=== PATIENT | male | born 2000 | race Caucasian/White ===

== ENCOUNTER 2024-10-24 14:27 | Emergency (ER) | payer BC, SELFPAY ==
--- NOTE | 2024-10-24 14:30 | ED_ITS ---
HPI - Skin/Abscess/Foreign Bdy General Chief complaint: Skin/Abscess/Foreign Body Stated complaint: skin irritation Time Seen by Provider: 10/24/24 14:30 Source: patient Mode of arrival: ambulatory Limitations: no limitations History of Present Illness HPI narrative: Patient is a 24-year-old male who presents with bruising to tip of penis. Patient states he was doing a squat and felt like his underwear was very tight and squeezing. Denies any testicular pain, swelling, groin pain, discharge or pain with urination. Related Data Allergies Allergy/AdvReac Type Severity Reaction Status Date / Time No Known Allergies Allergy Verified 10/24/24 15:23 Review of Systems 2 Review of Systems: All systems reviewed & are unremarkable except as noted in HPI and below Constitutional: Constitutional: Denies body ache(s), Denies chills, Denies fatigue, Denies fever(s), Denies headache(s), Denies malaise and Denies weakness Eyes: Eyes: Denies blurry vision, Denies irritation and Denies loss of vision ENT: Denies otalgia, Denies headache(s), Denies nasal discharge, Denies sinus pain and Denies sore throat Cardiovascular: Cardiovascular: Denies chest pain, Denies irregular heart rhythm and Denies dyspnea Respiratory: Respiratory: Denies dyspnea Gastrointestinal: Gastrointestinal: Denies abdominal pain, Denies melena, Denies hematochezia, Denies diarrhea, Denies nausea and Denies vomiting Genitourinary: Genitourinary: Reports other (Penile bruising) Musculoskeletal: Musculoskeletal: Denies back pain, Denies myalgias and Denies arthralgias Integumentary/Breasts: Skin/Breast: Denies pruritus and Denies rash Neurologic: Denies headache(s), Denies loss of vision and Denies weakness Psychiatric: Psychiatric: Reports no additional psychiatric complaints Endocrine: Endocrine: Denies fatigue PMFSH Comments At time of signature, agree with nursing past medical, surgical, social and family history. There is no relevant family history pertinent to the presenting complaint. Exam 2 Const: General: cooperative, healthy appearing, comfortable, no acute distress and well nourished Nutritional Appearance: well nourished O rientation/consciousness: patient oriented x3 Limitations: no limitations HENMT: Head: normal to inspection, normocephalic and atraumatic Ears: h earing grossly normal bilaterally and external ears normal Face/Nose/Sinus: N ormal external nose present, normal facial exam and face symmetric Face and sinus: normal facial exam and face symmetric Mouth: Yes lip normal Eyes: General: appearance normal, both eyes and all related structures A lignment and Position: alignment normal and position normal Periorbital: p eriorbital findings normal Eyelids: eyelids normal Pupils: Equal, round and reactive pupils present EOM: EOMs intact bilaterally Neck: Neck: normal visual inspection, full ROM and supple Chest: Chest palpation & inspection: normal inspection of the chest Resp: Effort & Inspection: normal respiratory effort and able to speak in complete sentences Auscultation: clear to auscultation bilaterally Cardio: Rate: regular rate Rhythm: regular rhythm Heart sounds: S1 normal heart sound present and S2 normal heart sound present GI: Inspection: normal to inspection : Penis: Yes normal penis, Yes circumcised, Yes ecchymosis, No erythematous, No vesicles and No Localized penile swelling present Meatus: No Blood at meatus present Scrotum: scrotum normal Testes: Testes normal, testicular lie normal and epididymides normal Male genitals images: 1. circular pattern of small purple discolorations appearing to be burst blood vessels. there is not open wounds or swelling. Skin: General skin exam: normal color and no rashes or lesions noted Neuro: General: patient oriented x3 and moves all extremities Cranial nerves: Yes Equal, round and reactive pupils present Speech: normal speech Gait exam (Neuro): Normal gait present Extrem: General: normal to inspection, full ROM and no edema Psych: Appearance: grossly normal and well kempt Mental Status: mental status grossly normal Speech and movement: Normal speech and movement present Affect: normal affect Attitude: cooperative Thought process: Normal thought process present Course Course Emergency Course: Patient is aware of diagnosis, understands and agrees to treatment plan. Anticipatory guidance given. Patient agrees to follow-up as directed and is aware of reasons to seek care at the emergency department. Portions of this record may have been created with voice recognition software Level of Care: Express Care Visit Vital Signs Vital signs: Vital Signs Temperature 36.4 C 10/24/24 15:08 Pulse Rate 78 10/24/24 15:08 Respiratory Rate 17 10/24/24 15:08 Blood Pressure 136/103 H 10/24/24 15:08 Pulse Oximetry 97 10/24/24 15:08 Oxygen Delivery Room Air 10/24/24 15:08 Temperature 36.4 C 10/24/24 15:08 Pulse Rate 78 10/24/24 15:08 Respiratory Rate 17 10/24/24 15:08 Blood Pressure 129/74 10/24/24 15:45 Pulse Oximetry 97 10/24/24 15:08 Oxygen Delivery Room Air 10/24/24 15:08 Reviewed MDM - Skin/Abscess/Foreign Bdy MDM Narrative Medical decision making narrative: Upon further examination, it appears that tip of penis was pinched in flap of underwear while doing a squat motion Pt well hydrated appearing, in no respiratory distress, hemodynamically stable. Recommend supportive care. The patient is stable at time of discharge the clinical impression was discussed and the patient was given the opportunity to ask questions, which were addressed as completely as possible given the information available at present. Anticipatory guidance and return to care precautions were discussed and the importance of primary care follow-up was stressed and encouraged. The patient voiced understanding of the plan, indications to return, and the need for follow-up. Exam findings show no acute concerns or changes Patient is appropriate for outpatient treatment and follow-up. Differential Diagnosis Differential diagnosis: Likely cellulitis, contact dermatitis and other (Petechia, hematoma) Discharge Plan Discharge Clinical Impression: Bruise of penis Patient Disposition: Home, Self-Care Condition: Stable Instructions: Hematoma (ED) Additional Instructions: 1) Please follow-up with your primary care doctor in the next 3-4 days if not improving. 2) If you have any worsening of symptoms or any other urgent concerns please go to the ER. 3) Please take pain medications as needed and continue taking your home medications as usual. 4) Please read and follow information included in discharge instructions. Patient Language: German Follow-up/Referrals: PHYSICIAN,CARPET MECHANIC [Primary Care Provider] - Jaiden Tello MD [Physician] - 3 Days ([facility] care) Time of Disposition: 15:43
--- OUTSIDE RECORDS SUMMARY | 2024-10-24 14:38 | XMS_ITS | Referral Summary ---
Author Organization [facility] Address [address] [place] [address] Care Team Providers Care Caregivers Non Medical Name Role Phone Taniya Stewart MD Primary Care Provider [phone] Allergies Active Allergy Reactions Criticality Noted Date Comments No Known Allergies Other (See comments) Low Reaction: Medications HYDROcodone-rafia taminophen (NORCO) 5-325 mg per tabletIndicatio ns:Pain 7 Active clindamycin (CLEOCIN) 300 mg capsule 8 Active aspirin 325 mg EC tablet Take 1 tablet (325 mg total) by mouth 2 (two) times a day for 14 days. 28 tablet 8 Active ascorbic acid (ascorbic acid) 500 mg tablet,chewable Take 1 tablet/chew tab (500 mg total) by mouth 2 (two) times a day. 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 Gender Identity Not on file Sexual Orientation Not on file Last Filed Vital Signs Vital Sign Reading Time Taken Comments Blood Pressure 135/65 01/02/2019 2:38 PM CDT Pulse 65 01/02/2019 2:38 PM CDT Temperature 36.3 C (97.3 F) 03/13/2018 5:20 PM CDT Respiratory Rate 18 03/13/2018 5:20 PM CDT Oxygen Saturation 98% 03/13/2018 5:20 PM CDT Inhaled Oxygen Concentration - - Weight 117.5 kg (259 lb) 01/02/2019 2:38 PM CDT Height 188 cm (6' 2 ) 01/02/2019 2:38 PM CDT Body Mass Index 33.25 01/02/2019 2:38 PM CDT Plan of Treatment Not on file Insurance [facility] Care Teams Caregivers Non Medical Relationship Specialty Start Date End Date Taniya Stewart MD [address] [place] [id number] PCP - General 03/13/18
--- OUTSIDE RECORDS SUMMARY | 2024-10-24 14:38 | XMS_ITS | Clinical Summary ---
Author Organization [facility] Address [address] [place] [address] Care Team Providers Care Plan Nurse Name Role Phone Taniya Stewart MD Primary Care Provider [phone] Allergies Active Allergy Reactions Criticality Noted Date [...] Noted Date Diagnosed Date Sports physical 03/15/2017 Surgical History Surgery Date Site/Laterality Comments ABSCESS DRAINAGE Left 08/2016-MRSA positive KNEE SURGERY Family History Medical History Relation Name Comments Diabetes Other 1 Family history of Diabetes mellitus; Blood Clot Other 2 Family history of Blood clots; Cancer Other 3 Family history of Cancer; Heart disease Other 4 Family history of Heart problems; Gout Other 5 Family history of Gout; Relation Name Status Comments Other 1 Other 2 Other 3 Other 4 Other 5 Social History Tobacco Use Types Packs/Day Years Used Date Smoking Tobacco: Never Smokeless Tobacco: Never Alcohol Use Standard Drinks/Week Comments Defer 0 (1 standard drink = 0.6 oz pur e alcohol) Sex and Gender Information Value Date Recorded Sex Assigned at Not on file 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
--- OUTSIDE RECORDS SUMMARY | 2024-10-24 14:38 | XMS_ITS | Clinical Summary ---
Author Organization [facility] Address [address] [place] [id number] Care Team Providers Care Auto Service Dispatcher Name Role Phone Unavailable Primary Care Provider Unavailabl e Social History Tobacco Use Types Packs/Day Years Used Date Smoking Tobacco: Never Assessed Sex and Gender Information Value Date Recorded Sex Assigned at Not on file Legal Sex Male 9:26 PM CDT Gender Identity Not on file Sexual Orientation Not on file Last Filed Vital Signs Vital Sign Reading Time Taken Comments Blood Pressure 112/56 11/23/2016 2:43 PM CDT Pulse 67 11/23/2016 2:43 PM CDT Temperature - - Respiratory Rate - - Oxygen Saturation - - Inhaled Oxygen Concentration - - Weight 101.7 kg (224 lb 3.2 oz) 11/23/2016 2:43 PM CDT Height 182.9 cm (6') 11/23/2016 2:43 PM CDT Body Mass Index 30.41 11/23/2016 2:43 PM CDT Plan of Treatment Health Maintenance Due Date Last Done Comments Annual Physical 2003 HPV Vaccines (1 - Male 3-dos e series) 2015 Hepatitis C 2018 DTaP, Tdap and Td Vaccines ( 1 - Tdap) 2019 Hepatitis B Vaccines (1 of 3 - 19+ 3-dose series) 2019 COVID-19 Vaccine ( - 2023-2 5 season) 2024 Influenza Adult (#1) 2024 Meningococcal B Vaccine Aged Out No l onger eligible based on patient's age to complete this topic Meningococcal Vaccine Aged Out No monik nestor eligible based on patient's age to complete this topic Pneumococcal Vaccine: Pediat rics (0 to 5 Years) and At-Risk Patients (6 to 64 Years) Aged Out No longer eligible b ased on patient's age to complete this topic RSV Immunizations Under 20 Months Aged Out No longer eligible based on patient's age to complete this topic Additional Health Concerns Infection Onset Date Last Indicated 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
[2024-10-24 15:08] VITALS: BP 136/103; PULSE 78; RESP 17; TEMP 36.4; O2SAT 97
[2024-10-24 15:45] VITALS: BP 129/74
== END 2024-10-24 15:45 | disposition home or self-care (01) ==
PROVIDERS: Emergency Provider Nurse Practitioner Family
DX: S30.21XA Contusion of penis, initial encounter (principal); X58.XXXA Exposure to other specified factors, initial encounter; Z86.16 Personal history of COVID-19
CPT/HCPCS: 99211; G0463

== ENCOUNTER 2024-11-07 11:09 | Outpatient (CLI) | payer BC, SELFPAY ==
[2024-11-07 11:38] LABS: Basophils Percent Auto 0.7 % (0.2-1.2); Eosinophils Absolute Auto 0.2 K/mm3 (0-0.3); Eosinophils Percent Auto 4.3 % (0-4.4); Hematocrit 48.8 % (42.0-52.0); Hemoglobin 16.2 g/dL (14.0-18.0); Immature Granulocyte Absolute 0.03 K/mm3 (0.00-0.031); Immature Granulocyte Percent A 0.6 % (0-0.5); Lymphocytes Percent Auto 33.3 % (18.3-44.2); Mean Corpuscular HGB Conc 33.2 g/dl (32-36); Mean Corpuscular Hemoglobin 28.5 pg (26-34); Mean Corpuscular Volume 85.8 fl (80-100); Mean Platelet Volume 9.8 fl (7.4-10.4); Monocytes Absolute Auto 0.5 K/mm3 (0.1-0.6); Monocytes Percent Auto 8.7 % (2.6-8.5); Neutrophils Absolute Auto 2.8 K/mm3 (1.3-6.7); Neutrophils Percent Auto 52.4 % (45.5-73.1); Platelet Count Result 194 k/mm3 (150-375); Red Blood Count 5.69 M/mm3 (4.6-6.20); Red Cell Distribution Width 12.7 % (11.5-14.5); White Blood Count 5.4 K/mm3 (4.5-10.0)
[2024-11-07 11:56] LABS: Alanine Aminotransferase 57 U/L (6-50); Albumin Level 4.8 g/dL (3.5-5.1); Alkaline Phosphatase 56 U/L (38-126); Anion Gap 11 mmol/L (4-12); Aspartate Amino Transferase 31 U/L (17-59); Bilirubin,Total 0.6 mg/dL (0.2-1.3); Blood Urea Nitrogen 20 mg/dL (9-20); Calcium 9.4 mg/dL (8.4-10.2); Carbon Dioxide 26 mmol/L (22-30); Chloride 104 mmol/L (98-107); Cholesterol 179 mg/dL (0-200); Estimated Glomerular Filt Rate > 60; Glucose 92 mg/dL (65-110); HDL Direct 37 mg/dL; Potassium 4.2 mmol/L (3.4-5.0); Sodium 141 mmol/L (137-145); Triglycerides 124 mg/dL (<150)
[2024-11-07 12:07] LABS: LDL Cholesterol Direct 98 mg/dL
[2024-11-07 12:11] LABS: Vitamin D 25 Hydroxy 57.8 ng/mL
--- OUTSIDE RECORDS SUMMARY | 2024-11-07 12:22 | XMS_ITS | Referral Summary ---
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
--- OUTSIDE RECORDS SUMMARY | 2024-11-07 12:22 | XMS_ITS | Clinical Summary ---
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
--- OUTSIDE RECORDS SUMMARY | 2024-11-07 12:22 | XMS_ITS | Clinical Summary ---
Author Organization [facility] Address [address] [place] [address] Care Team Providers Care Motel Operator Name Role Phone Unavailable Primary Care Provider [...]
== END 2024-11-07 11:10 | disposition home or self-care (01) ==
LOC: ANHLAB 11:11
PROVIDERS: PCP Nurse Practitioner Family; Visit Provider Nurse Practitioner Family
DX: Z13.0 Encounter for screening for diseases of the blood and blood-forming organs and certain disorders involving the immune mechanism (principal); Z13.1 Encounter for screening for diabetes mellitus; Z13.220 Encounter for screening for lipoid disorders; E55.9 Vitamin D deficiency, unspecified; Z68.37 Body mass index [BMI] 37.0-37.9, adult
CPT/HCPCS: 36415; 80053; 80061; 82306; 84443; 85025